=== PATIENT | female | born 1995 | race Caucasian/White ===

== ENCOUNTER 2019-04-21 10:27 | Emergency (ER) | payer MEDICAID, OTHER ==
[~2019-04-21] VITALS: Ht 157.5 cm; Wt 72.0 kg
[2019-04-21 10:41] VITALS: BP 111/67
--- NOTE | 2019-04-21 11:04 | NUR ---
pt has co abdominal pain for 2 days. denies toruble voiding, no n/v/d. denies cp or sob
--- NOTE | 2019-04-21 11:12 | NUR ---
Patient/Caregiver given discharge instructions and they have confirmed that they understand the instructions. Patient ambulatory with steady gait.
[2019-04-21 11:24] LABS: CULTURE INDICATED? YES; MICROSCOPIC INDICATED
[2019-04-21 12:26] LABS: HCG UR SG 1.022 (1.003-1.030)
== END 2019-04-21 11:20 ==
LOC: ED 11:16
DX: O23.41 Unspecified infection of urinary tract in pregnancy, first trimester (principal); Z3A.01 Less than 8 weeks gestation of pregnancy
CPT/HCPCS: 81001; 81025; 87086; 99283

== ENCOUNTER 2019-04-21 16:51 | Emergency (ER) | payer SELFPAY ==
[~2019-04-21] VITALS: Ht 157.5 cm; Wt 72.6 kg
[2019-04-21 16:55] VITALS: BP 124/71
--- NOTE | 2019-04-21 17:03 | NUR ---
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
--- NOTE | 2019-04-21 17:14 | NUR ---
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
--- NOTE | 2019-04-21 17:29 | NUR ---
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
== END 2019-04-21 17:32 | disposition left against medical advice (07) ==
LOC: ED 17:15
DX: R10.31 Right lower quadrant pain (principal); Z53.21 Procedure and treatment not carried out due to patient leaving prior to being seen by health care provider

== ENCOUNTER 2019-06-08 22:09 | Emergency (ER) | payer MEDICAID ==
[~2019-06-08] VITALS: Ht 157.5 cm; Wt 70.4 kg
[2019-06-08 22:11] VITALS: BP 118/71
[2019-06-08 22:42] LABS: BASOPHILS # (AUTO) 0.08 x10^3/uL (0-0.1); BASOPHILS % (AUTO) 1 % (0-1); EOSINOPHILS # (AUTO) 0.28 x10^3/uL (0-0.4); EOSINOPHILS % (AUTO) 2 % (1-7); LYMPHOCYTES # (AUTO) 2.42 x10^3/uL (1-3.4); LYMPHOCYTES % (AUTO) 19 % (22-44); MD NO; MEAN CORPUSCULAR HEMOGLOBIN 29.7 pg (27.0-34.8); MEAN CORPUSCULAR HGB CONC 33.2 g/dL (32.4-35.8); MEAN CORPUSCULAR VOLUME 89.5 fL (80-100); MEAN PLATELET VOLUME 7.4 fL (7.4-10.4); MONOCYTES # (AUTO) 0.64 x10^3/uL (0.2-0.8); MONOCYTES % (AUTO) 5 % (2-9); NEUTROPHILS # (AUTO) 9.44 x10^3/uL (1.8-6.8); NEUTROPHILS % (AUTO) 74 % (42-75); PLATELET COUNT 297 x10^3/uL (130-400); RED BLOOD COUNT 4.48 x10^6/uL (3.82-5.3); RED CELL DISTRIBUTION WIDTH 13.2 % (9.6-15.2)
[2019-06-08 22:55] LABS: ALBUMIN 3.7 g/dL (3.4-5.0); ANION GAP 4 mmol/L (5-15); CHLORIDE 111 mmol/L (98-107); CREATININE 0.92 mg/dL (0.55-1.02)
--- NOTE | 2019-06-09 00:13 | NUR ---
patient was roomed and states she is leaving. walked out.
== END 2019-06-09 00:15 | disposition left against medical advice (07) ==
LOC: ED 22:11
DX: O46.91 Antepartum hemorrhage, unspecified, first trimester (principal); Z3A.01 Less than 8 weeks gestation of pregnancy; R10.2 Pelvic and perineal pain
CPT/HCPCS: 36415; 80048; 82040; 84702; 85025; 86901; 99283